=== PATIENT | male | born 1995 | race Caucasian/White ===

== ENCOUNTER 2024-11-25 14:31 | Inpatient (IN) | payer OTHER ==
[2024-11-25] MEDS ORDERED: ASPIRIN 81 MG CHEWABLE TABLETS ONE (15:17)
[2024-11-25] MEDS ORDERED: ONDANSETRON 4 MG/2 ML VIAL ONE (15:36)
[2024-11-25] MEDS ORDERED: MORPHINE SULFATE 2 MG/ML SYRINGE ONE ×2 (15:36→16:29)
[2024-11-25] MEDS ORDERED: PANTOPRAZOLE SODIUM 40 MG VIAL ONE (15:37)
[2024-11-25 15:48] LABS: ABSOLUTE IMMATURE GRANULOCYTES 0.04 x10^3/uL (0.0-0.031); BASOPHILS # 0.06 x10^3/uL (0.01-0.08); EOSINOPHIL % 1.4 % (0.8-7.0); EOSINOPHILS # 0.15 x10^3/uL (0.04-0.54); MCHC 30.4 g/dl (32.3-36.5); MEAN CELL VOLUME 61.1 fl (79.0-92.2); MEAN PLT VOLUME 9.3 fl (9.4-12.4); MONOCYTE # 0.58 x10^3/uL (0.30-0.82); MONOCYTE % 5.4 % (5.3-12.2); RDW 16.2 % (11.9-15.3)
[2024-11-25 15:59] LABS: INR 1.19 (0.83-1.09); PROTHROMBIN TIME (PATIENT) 13.0 SEC (9.7-13.0)
[2024-11-25 16:02] LABS: ACTIVATED PTT 36.3 SECONDS (25.2-36.5)
[2024-11-25] MEDS: SODIUM CHLORIDE 1,000 ML IV STA (16:03)
[2024-11-25] MEDS: OCTREOTIDE ACETATE 50 MCG/1 ML - 1 ML VIAL IVPUSH ONE (16:03)
[2024-11-25] MEDS: ONDANSETRON 4 MG/2 ML VIAL IVPUSH ONE (16:03)
[2024-11-25] MEDS: PANTOPRAZOLE SODIUM 40 MG VIAL IVPUSH ONE (16:03)
[2024-11-25] MEDS: morphine CARPU-JECT 2 MG/1 ML DISP.SYRIN IVPUSH ONE ×3 (16:04→16:46)
[2024-11-25 16:06] LABS: GLUCOSE,RANDOM 148.0 mg/dL (74-106)
[2024-11-25 16:07] LABS: TOT PROT 7.8 g/dl (6.4-8.2)
[2024-11-25 16:08] LABS: CO2 26.0 mmol/L (21-32)
[2024-11-25 16:09] LABS: ALK PHOS 146.0 U/L (40-150)
[2024-11-25 16:12] LABS: CREATININE 0.78 mg/dL (0.55-1.3); SGOT/AST 129.0 U/L (5-34); SGPT/ALT 189.0 U/L (0-55)
[2024-11-25] MEDS ORDERED: ACETAMINOPHEN INJECTION 100 ML ONE (16:29)
[2024-11-25] MEDS: ACETAMINOPHEN 1000 MG/100 ML BAG IVPB ONE (16:45)
[2024-11-25 18:09] LABS: URINE APPEARANCE Clear; URINE BILIRUBIN Negative (NEGATIVE); URINE COLOR Yellow; URINE GLUCOSE (UA) Negative (NEGATIVE); URINE KETONE Negative (NEGATIVE); URINE LEUK ESTERASE Negative (NEGATIVE); URINE NITRITE Negative (NEGATIVE); URINE PROTEIN Negative (NEGATIVE); URINE UROBILINOGEN 1.0 mg/dL (0.2-1.0)
[2024-11-25] MEDS ORDERED: PIPERACILLIN/TAZOB 4.5 GM 4.5 GM/100 ML BAG IVPB ONE (18:25)
[2024-11-25] MEDS: PIPERACILLIN/TAZOB 4.5 GM 4.5 GM in DEXTROSE 5%-WATER 100 ML IVPB ONE (18:31)
[2024-11-25] MEDS ORDERED: KETOROLAC TROMETHAMINE 15 MG/ML VIAL ONE (19:51)
[2024-11-25] MEDS: CEFOXITIN SODIUM 2 GM in DEXTROSE 5%-WATER - 100 ML IVPB ONE (19:56)
[2024-11-25] MEDS: KETOROLAC TROMETHAMINE 15 MG/ML VIAL IVPUSH ONE (19:57)
[2024-11-25] MEDS ORDERED: ONDANSETRON 4 MG/2 ML VIAL IVPUSH PRN (21:58)
[2024-11-25] MEDS: SODIUM CHLORIDE 1,000 ML IV SCH (22:27)
[2024-11-25] MEDS: ACETAMINOPHEN 1000 MG/100 ML BAG IVPB PRN (22:54)
[2024-11-26] MEDS ORDERED: CEFOXITIN SODIUM 2 GM in DEXTROSE 5%-WATER - 100 ML IVPB SCH (02:00)
[2024-11-26] MEDS: CEFOXITIN SODIUM 2 GM in DEXTROSE 5%-WATER 100 ML IVPB SCH (05:16)
[2024-11-26 08:47] LABS: ABSOLUTE IMMATURE GRANULOCYTES 0.05 x10^3/uL (0.0-0.031); BASOPHILS # 0.01 x10^3/uL (0.01-0.08); EOSINOPHIL % 0.0 % (0.8-7.0); EOSINOPHILS # 0.00 x10^3/uL (0.04-0.54); MCHC 30.6 g/dl (32.3-36.5); MEAN CELL VOLUME 60.7 fl (79.0-92.2); MEAN PLT VOLUME 9.5 fl (9.4-12.4); MONOCYTE # 0.99 x10^3/uL (0.30-0.82); MONOCYTE % 8.7 % (5.3-12.2); RDW 15.4 % (11.9-15.3)
[2024-11-26 09:11] LABS: INR 1.23 (0.83-1.09); PROTHROMBIN TIME (PATIENT) 13.5 SEC (9.7-13.0)
[2024-11-26 09:14] LABS: ACTIVATED PTT 32.5 SECONDS (25.2-36.5)
[2024-11-26 09:33] LABS: GLUCOSE,RANDOM 116.0 mg/dL (74-106); TOT PROT 6.7 g/dl (6.4-8.2)
[2024-11-26 09:34] LABS: CO2 23.0 mmol/L (21-32)
[2024-11-26 09:38] LABS: SGOT/AST 524.0 U/L (5-34); SGPT/ALT 889.0 U/L (0-55)
[2024-11-26 09:39] LABS: CREATININE 0.66 mg/dL (0.55-1.3)
[2024-11-26 09:43] LABS: ALK PHOS 232.0 U/L (40-150); IRON SERUM 68.0 ug/dL (50-175)
[2024-11-26] MEDS: morphine CARPU-JECT 2 MG/1 ML DISP.SYRIN IVPUSH PRN (10:53)
[2024-11-26] MEDS ORDERED: MIDAZOLAM HCL 2 MG/2 ML SINGLE DOSE VIAL ONE ×2 (12:35→12:36)
[2024-11-26] MEDS ORDERED: CEFAZOLIN SODIUM 2 GM VIAL ONE (12:44)
[2024-11-26] MEDS: CEFAZOLIN 2 GM in DEXTROSE 5%-WATER - 100 ML IVPB ONE (12:50)
[2024-11-26] MEDS: IOHEXOL 300 MG/ML INFUS..BTL IV ONE (13:27)
[2024-11-26] MEDS: INDOMETHACIN 50 MG RECTAL SUPPOSITORY PR ONE (13:42)
[2024-11-26 14:55] LABS: IRON SERUM 67.0 ug/dL (50-175)
[2024-11-26] MEDS: LACTATED RINGERS SOLUTION 1,000 ML/1,000 ML INFUS.BAG IV SCH (21:36)
[2024-11-27] MEDS: LACTATED RINGERS SOLUTION 1,000 ML/1,000 ML INFUS.BAG IV SCH ×3 (01:30→17:04)
[2024-11-27 08:29] LABS: ABSOLUTE IMMATURE GRANULOCYTES 0.03 x10^3/uL (0.0-0.031); BASOPHILS # 0.04 x10^3/uL (0.01-0.08); EOSINOPHIL % 3.2 % (0.8-7.0); EOSINOPHILS # 0.19 x10^3/uL (0.04-0.54); MCHC 30.8 g/dl (32.3-36.5); MEAN CELL VOLUME 61.4 fl (79.0-92.2); MEAN PLT VOLUME 9.9 fl (9.4-12.4); MONOCYTE # 0.61 x10^3/uL (0.30-0.82); MONOCYTE % 10.3 % (5.3-12.2); RDW 15.3 % (11.9-15.3)
[2024-11-27 09:02] LABS: TOT PROT 5.6 g/dl (6.4-8.2)
[2024-11-27 09:02] LABS: GLUCOSE,RANDOM 83.0 mg/dL (74-106)
[2024-11-27 09:03] LABS: TOT PROT 5.6 g/dl (6.4-8.2)
[2024-11-27 09:04] LABS: CO2 28.0 mmol/L (21-32)
[2024-11-27 09:07] LABS: SGOT/AST 147.0 U/L (5-34); SGPT/ALT 454.0 U/L (0-55)
[2024-11-27 09:08] LABS: CREATININE 0.68 mg/dL (0.55-1.3); SGOT/AST 148.0 U/L (5-34); SGPT/ALT 454.0 U/L (0-55)
[2024-11-27 09:14] LABS: ALK PHOS 198.0 U/L (40-150)
[2024-11-27 09:15] LABS: ALK PHOS 199.0 U/L (40-150)
[2024-11-27 10:49] VITALS: BMI 29.0
[2024-11-27] MEDS: NAPH,MB-DB/K PH,MBDB POWDER PACKET PO ONE (11:01)
[2024-11-27] MEDS: MAGNESIUM SULFATE IN WATER 2 GM/50 ML IVPB IVPB ONE (11:02)
[2024-11-27] MEDS ORDERED: BUPIVACAINE HCL/PF 0.25% (2.5MG/ML) 10 ML VIAL ONE (12:43)
[2024-11-27] MEDS ORDERED: HEPARIN NA (PORCINE) 5,000 UNITS/ML 1ML VIAL ONE (12:44)
[2024-11-27] MEDS ORDERED: cefOXitin SODIUM 2 GM VIAL (RESTRICTED TO ID) IVPB ONE (12:44)
[2024-11-27] MEDS ORDERED: PROPOFOL 20 ML ONE (13:26)
[2024-11-27] MEDS ORDERED: MIDAZOLAM HCL 2 MG/2 ML SINGLE DOSE VIAL ONE (13:26)
[2024-11-27] MEDS ORDERED: ROCURONIUM BROMIDE 50 MG/5 ML SYRINGE ONE (13:26)
[2024-11-27] MEDS: cefOXitin SODIUM 1 GM VIAL (RESTRICTED TO ID) IVPB ONE ×2 (15:04)
[2024-11-27] MEDS: BUPIVACAINE HCL/PF 0.25% (2.5MG/ML) 10 ML VIAL IJ ONE ×3 (15:07)
[2024-11-27] MEDS ORDERED: DEXMEDETOMIDINE HCL 200 MCG/2 ML IVPB ONE (15:38)
[2024-11-27] MEDS ORDERED: ACETAMINOPHEN INJECTION 100 ML ONE (15:38)
[2024-11-27] MEDS ORDERED: GLYCOPYRROLATE 0.2 MG/1 ML VIAL ONE (15:45)
[2024-11-27] MEDS ORDERED: ONDANSETRON 4 MG/2 ML VIAL ONE (15:45)
[2024-11-27] MEDS ORDERED: DEXAMETHASONE SOD PHOSPHATE 4 MG/1 ML VIAL ONE (15:45)
[2024-11-27] MEDS ORDERED: NEOSTIGMINE METHYLSULFATE 0.5 MG/1 ML - 10 ML MDV ONE (15:45)
[2024-11-27] MEDS ORDERED: KETOROLAC TROMETHAMINE 30 MG/1 ML VIAL ONE (15:45)
[2024-11-27] MEDS ORDERED: SUGAMMADEX SODIUM 200 MG/2 ML VIAL ONE (16:08)
[2024-11-27] MEDS ORDERED: ONDANSETRON 4 MG/2 ML VIAL IVPUSH PRN (16:47)
[2024-11-27] MEDS ORDERED: morphine CARPU-JECT 2 MG/1 ML DISP.SYRIN IVPUSH PRN (16:47)
[2024-11-27] MEDS ORDERED: PIPERACILLIN/TAZOB 3.375 GM 3.375 GM in DEXTROSE 5%-WATER - 50 ML IVPB SCH (18:00)
[2024-11-27] MEDS: PIPERACILLIN/TAZOB 3.375 GM 3.375 GM in DEXTROSE 5%-WATER - 50 ML IVPB SCH (18:23)
[2024-11-27] MEDS: TRANEXAMIC ACID 1000 MG/10 ML VIAL IVPUSH SCH (19:20)
[2024-11-27] MEDS: CEFOXITIN SODIUM 2 GM in DEXTROSE 5%-WATER - 100 ML IVPB SCH (19:20)
[2024-11-27] MEDS: TRANEXAMIC ACID - 1,000 MG in SODIUM CHLORIDE 50 ML IVPB SCH (23:28)
[2024-11-28 09:26] LABS: ABSOLUTE IMMATURE GRANULOCYTES 0.05 x10^3/uL (0.0-0.031); BASOPHILS # 0.01 x10^3/uL (0.01-0.08); EOSINOPHIL % 0.0 % (0.8-7.0); EOSINOPHILS # 0.00 x10^3/uL (0.04-0.54); MCHC 30.7 g/dl (32.3-36.5); MEAN CELL VOLUME 60.7 fl (79.0-92.2); MEAN PLT VOLUME 9.6 fl (9.4-12.4); MONOCYTE # 0.66 x10^3/uL (0.30-0.82); MONOCYTE % 6.2 % (5.3-12.2); RDW 15.4 % (11.9-15.3)
[2024-11-28 10:28] LABS: GLUCOSE,RANDOM 111.0 mg/dL (74-106)
[2024-11-28 10:29] LABS: TOT PROT 6.4 g/dl (6.4-8.2)
[2024-11-28 10:30] LABS: CO2 27.0 mmol/L (21-32)
[2024-11-28 10:34] LABS: CREATININE 0.71 mg/dL (0.55-1.3); SGOT/AST 243.0 U/L (5-34); SGPT/ALT 500.0 U/L (0-55)
[2024-11-28 10:56] LABS: ALK PHOS 244.0 U/L (40-150)
[2024-11-28] MEDS ORDERED: ACETAMINOPHEN 500 MG TABLET (FP) PO PRN (11:37)
[2024-11-28] MEDS ORDERED: MELATONIN 5 MG TABLETS PO PRN (16:18)
[2024-11-28 17:27] LABS: TOT PROT 6.9 g/dl (6.4-8.2)
[2024-11-28 17:29] LABS: GLUCOSE,RANDOM 109.0 mg/dL (74-106); TOT PROT 6.7 g/dl (6.4-8.2)
[2024-11-28 17:30] LABS: CO2 28.0 mmol/L (21-32)
[2024-11-28 17:32] LABS: SGOT/AST 339.0 U/L (5-34); SGPT/ALT 616.0 U/L (0-55)
[2024-11-28 17:34] LABS: SGOT/AST 330.0 U/L (5-34); SGPT/ALT 589.0 U/L (0-55)
[2024-11-28 17:35] LABS: CREATININE 0.79 mg/dL (0.55-1.3)
[2024-11-28 17:39] LABS: ALK PHOS 250.0 U/L (40-150)
[2024-11-28 17:40] LABS: ALK PHOS 259.0 U/L (40-150)
[2024-11-28] MEDS: PANTOPRAZOLE SODIUM 40 MG VIAL IVPUSH ONE (19:30)
[2024-11-28] MEDS: DOCUSATE SODIUM 100 MG CAPSULE (FP) PO ONE (23:16)
[2024-11-29] MEDS: PANTOPRAZOLE SODIUM 40 MG VIAL IVPUSH SCH (09:26)
[2024-11-29 09:45] LABS: ABSOLUTE IMMATURE GRANULOCYTES 0.03 x10^3/uL (0.0-0.031); BASOPHILS # 0.05 x10^3/uL (0.01-0.08); EOSINOPHIL % 1.5 % (0.8-7.0); EOSINOPHILS # 0.13 x10^3/uL (0.04-0.54); MCHC 31.3 g/dl (32.3-36.5); MEAN CELL VOLUME 60.2 fl (79.0-92.2); MEAN PLT VOLUME 9.9 fl (9.4-12.4); MONOCYTE # 0.59 x10^3/uL (0.30-0.82); MONOCYTE % 6.9 % (5.3-12.2); RDW 15.4 % (11.9-15.3)
[2024-11-29 09:53] LABS: INR 1.28 (0.83-1.09); PROTHROMBIN TIME (PATIENT) 13.9 SEC (9.7-13.0)
[2024-11-29 14:00] LABS: GLUCOSE,RANDOM 93.0 mg/dL (74-106); TOT PROT 5.8 g/dl (6.4-8.2)
[2024-11-29 14:01] LABS: CO2 26.0 mmol/L (21-32)
[2024-11-29 14:03] LABS: ALK PHOS 224.0 U/L (40-150)
[2024-11-29 14:06] LABS: CREATININE 0.78 mg/dL (0.55-1.3); SGOT/AST 272.0 U/L (5-34); SGPT/ALT 583.0 U/L (0-55)
[2024-11-29 14:10] LABS: TOT PROT 5.7 g/dl (6.4-8.2)
[2024-11-29 14:12] LABS: ALK PHOS 224.0 U/L (40-150)
[2024-11-29 14:15] LABS: IRON SERUM 112.0 ug/dL (50-175); SGOT/AST 274.0 U/L (5-34); SGPT/ALT 588.0 U/L (0-55)
[2024-11-29] MEDS: LACTATED RINGERS SOLUTION 1,000 ML/1,000 ML INFUS.BAG IV SCH (16:51)
[2024-11-30] MEDS ORDERED: IBUPROFEN 600 MG TABLET (FP) PO PRN (08:33)
[2024-11-30 10:01] LABS: ABSOLUTE IMMATURE GRANULOCYTES 0.06 x10^3/uL (0.0-0.031); BASOPHILS # 0.05 x10^3/uL (0.01-0.08); EOSINOPHIL % 2.5 % (0.8-7.0); EOSINOPHILS # 0.18 x10^3/uL (0.04-0.54); MCHC 31.3 g/dl (32.3-36.5); MEAN CELL VOLUME 60.6 fl (79.0-92.2); MEAN PLT VOLUME 9.8 fl (9.4-12.4); MONOCYTE # 0.43 x10^3/uL (0.30-0.82); MONOCYTE % 6.0 % (5.3-12.2); RDW 16.0 % (11.9-15.3)
[2024-11-30 10:31] LABS: TOT PROT 6.5 g/dl (6.4-8.2)
[2024-11-30 10:33] LABS: ALK PHOS 234.0 U/L (40-150)
[2024-11-30 10:36] LABS: SGOT/AST 256.0 U/L (5-34); SGPT/ALT 661.0 U/L (0-55)
[2024-11-30 22:21] VITALS: RESP 18
[2024-12-01 09:35] LABS: ABSOLUTE IMMATURE GRANULOCYTES 0.06 x10^3/uL (0.0-0.031); BASOPHILS # 0.03 x10^3/uL (0.01-0.08); EOSINOPHIL % 4.0 % (0.8-7.0); EOSINOPHILS # 0.23 x10^3/uL (0.04-0.54); MCHC 30.7 g/dl (32.3-36.5); MEAN CELL VOLUME 61.3 fl (79.0-92.2); MEAN PLT VOLUME 9.5 fl (9.4-12.4); MONOCYTE # 0.35 x10^3/uL (0.30-0.82); MONOCYTE % 6.0 % (5.3-12.2); RDW 15.9 % (11.9-15.3)
[2024-12-01 10:00] VITALS: BP 112/72; PULSE 69; TEMP 98.1
[2024-12-01 10:12] LABS: TOT PROT 6.1 g/dl (6.4-8.2)
[2024-12-01 10:17] LABS: SGOT/AST 288.0 U/L (5-34)
[2024-12-01 10:39] LABS: SGPT/ALT 724.0 U/L (0-55)
[2024-12-01 10:57] LABS: ALK PHOS 209.0 U/L (40-150)
== END 2024-12-01 14:07 | disposition home or self-care (01) | DRG 263 ==
LOC: JER 14:31 → JERBED 18:19 → J5S 21:47
PROVIDERS: ADMIT Internal Medicine; ATTEND Internal Medicine
PROC: 0FC98ZZ Extirpation of Matter from Common Bile Duct, Via Natural or Artificial Opening Endoscopic (ICD-10-PCS; 2024-11-26)
PROC: 0FT44ZZ Resection of Gallbladder, Percutaneous Endoscopic Approach (ICD-10-PCS; principal; 2024-11-27 15:00)
DX: K81.0 Acute cholecystitis (principal); K83.09 Other cholangitis; K56.7 Ileus, unspecified; R10.11 Right upper quadrant pain; R10.13 Epigastric pain; R74.01 Elevation of levels of liver transaminase levels; R94.5 Abnormal results of liver function studies; K83.8 Other specified diseases of biliary tract
CPT/HCPCS: 36415; 71046-TC-FY; 74177-TC; 74181-TC; 76000-TC-FY; 76705-TC; 80048; 80053; 80076; 81003; 82248; 82607; 82728; 82746; 82962; 83540; 83550; 83690; 83735; 84100; 84478; 84484; 85025; 85610; 85730; 86140; 86850; 86900; 86901; 87086; 88304-TC; 93005; 93010; 94010; 94760; 99285-25; Q9967